=== PATIENT | female | born 1995 | race Caucasian/White ===

== ENCOUNTER 2017-03-25 14:59 | Emergency (ER) | payer BC ==
[~2017-03-25] VITALS: Ht 162.6 cm; Wt 65.8 kg
[~2017-03-25 14:59] MED LIST: advil; albuterol; promethazine; tylenol
[2017-03-25 15:11] VITALS: BP_SYST 119
[2017-03-25] MEDS ORDERED: IBUPROFEN 800 MG TABLET PO ONE (15:30)
[2017-03-25 16:36] VITALS: BP_SYST 98
== END 2017-03-25 16:36 | disposition home or self-care (01) ==
LOC: SED 14:59
DX: L08.9 Local infection of the skin and subcutaneous tissue, unspecified (principal); S50.902D Unspecified superficial injury of left elbow, subsequent encounter; J45.909 Unspecified asthma, uncomplicated; W19.XXXD Unspecified fall, subsequent encounter
CPT/HCPCS: 81025; 87070-TC; 99285